=== PATIENT | male | born 1985 | race Caucasian/White ===

== ENCOUNTER 2020-10-31 16:04 | Outpatient (CLI) | payer OTHER | END 2020-10-31 16:17 | disposition home or self-care (01) | LOC: RAD 16:04 | PROVIDERS: ATTEND Orthopaedic Surgery | DX: M25.531 Pain in right wrist (principal); M25.532 Pain in left wrist; M25.561 Pain in right knee; M25.562 Pain in left knee ==

== ENCOUNTER 2024-12-02 17:47 | Emergency (ER) | payer OTHER ==
[~2024-12-02] VITALS: Ht 167.6 cm; Wt 77.1 kg
[2024-12-02 18:11] VITALS: BP 110/90; O2SAT 98
[2024-12-02] MEDS ORDERED: FAMOTIDINE/PF 20 MG/2 ML VIAL IV PUSH STA (18:35)
[2024-12-02] MEDS ORDERED: FAMOTIDINE/PF 20 MG/2 ML VIAL ONE (18:42)
[2024-12-02 18:59] LABS: BASO % 0.6 % (0.1-1.2); EOS # 0.25 (0.04-0.54); EOS % 3.4 % (0.7-7.0); LYMPH # 3.07 (1.18-3.74); LYMPH % 42.3 % (19.3-53.1); MEAN PLATELET VOLUME 10.40 fl (9.4-12.4); MONO # 0.47 (0.24-0.82); MONO % 6.5 % (4.7-12.5); NEUT # 3.42 (1.56-6.13); NEUT % 47.1 % (34.0-71.1); RED CELL DISTRIBUTION WIDTH 12.3 % (11.6-14.4)
[2024-12-02 19:41] LABS: ALT/SGPT 20.0 U/L (12-78); AST/SGOT 18.0 U/L (15-37); BILIRUBIN TOTAL 0.45 mg/dL (0.3-1.2); BUN CREA RATIO 16.0 (7.0-25.0); CREATININE SERUM 0.97 mg/dL (0.70-1.30); GFR 86.16; GLOBULINA 3.5 G/DL (2.4-3.5); GLUCOSE FASTING 95.0 mg/dL (65-100); OSMOLALITY SERUM 286.0 MOSM/KG (275-295)
== END 2024-12-02 21:31 | disposition home or self-care (01) ==
LOC: ER 17:47
PROVIDERS: General Practice
DX: K29.70 Gastritis, unspecified, without bleeding (principal); R07.89 Other chest pain